=== PATIENT | female | born 1980 | race Asian ===

== ENCOUNTER 2023-11-19 18:13 | Emergency (ER) | payer BC ==
[2023-11-19 18:26] VITALS: BP 109/61; PULSE 68; RESP 17; BMI 23.0
[2023-11-19] MEDS ORDERED: ACETAMINOPHEN INJECTION 100 ML IVPB ONE (18:49)
[2023-11-19] MEDS ORDERED: ACETAMINOPHEN 325 MG TABLET (FP) ONE (18:53)
[2023-11-19] MEDS: ACETAMINOPHEN 500 MG TABLET (FP) PO ONE (19:06)
[2023-11-19 19:11] LABS: BASO % 0.7 % (0-2.0); EOS % 2.3 % (0-4.5); HEMATOCRIT 40.2 % (32.4-45.2); HEMOGLOBIN 13.3 GM/dL (10.7-15.3); LYMPH % 21.6 % (8-40); MEAN CELL VOLUME 84.8 fl (80-96); MEAN PLT VOLUME 7.6 fl (7.5-11.1); MONO % 7.7 % (3.8-10.2); NEUT % 67.7 % (42.8-82.8); PLATELET COUNT 321 10^3/uL (134-434); RBC 4.74 M/mm3 (3.60-5.2); RDW 13.1 % (11.6-15.6); WHITE BLOOD COUNT 8.9 K/mm3 (4.0-10.0)
[2023-11-19] MEDS: ACETAMINOPHEN 1000 MG/100 ML BAG IVPB ONE (19:12)
[2023-11-19 19:17] LABS: PH,URINE 5.5 (5.0-8.0); URINE APPEARANCE CLEAR; URINE BILIRUBIN NEGATIVE (NEGATIVE); URINE COLOR YELLOW; URINE GLUCOSE (UA) NEGATIVE (NEGATIVE); URINE KETONE 2+ (NEGATIVE); URINE LEUK ESTERASE NEGATIVE (NEGATIVE); URINE NITRITE NEGATIVE (NEGATIVE); URINE PROTEIN NEGATIVE (NEGATIVE)
[2023-11-19 19:33] LABS: HCG,QUALITATIVE URINE Negative
[2023-11-19 19:38] LABS: POTASSIUM 3.8 mmol/L (3.5-5.1)
[2023-11-19 19:40] LABS: CALCIUM 9.2 mg/dL (8.5-10.1)
[2023-11-19 19:41] LABS: ALBUMIN 4.4 g/dl (3.4-5.0); BLOOD UREA NITROGEN 17.7 mg/dL (7-18)
[2023-11-19 19:44] LABS: CREATININE 0.8 mg/dL (0.55-1.3)
[2023-11-19 19:45] LABS: BILIRUBIN,TOTAL 0.5 mg/dL (0.2-1); TOT PROT 7.7 g/dl (6.4-8.2)
[2023-11-19 20:00] VITALS: TEMP 97.8
== END 2023-11-19 20:01 | disposition home or self-care (01) ==
LOC: JER 18:13
DX: R55 Syncope and collapse (principal); R10.13 Epigastric pain; R10.30 Lower abdominal pain, unspecified
CPT/HCPCS: 36415; 80053; 81003; 83690; 84484; 84703; 85025; 93005; 93010; 99284-25